=== PATIENT | female | born 1985 | race Caucasian/White ===

== ENCOUNTER → 2023-01-20 | Outpatient (CLI) | payer MEDICAID ==
--- NOTE | 2023-01-20 15:41 | US ---
EXAMINATION TYPE: US OB anatomy transabd DATE OF EXAM: 01/20/2023 COMPARISON: 11/11/2022 CLINICAL INDICATION: Female, 37 years old with history of O36.60X0 MATERNAL CARE FOR EXCESS ; a natomy TECHNIQUE: Transabdominal (TA) EXAM MEASUREMENTS: GESTATIONAL AGE / DATING Physician Established: (19 weeks/0 days) EDC: 06/16/2023 Dates by LMP: (19 weeks/0 days) EDC: 06/16/2023 Dates by First Scan: ( 9 weeks/0 days) EDC: 06/16/2023 Dates by Current Scan for: (19 weeks/5 days) (5 days more growth than expected compared to ) EDC: 06/11/2023 SURVEY IUP: Single PLACENTA: Fundal PREVIA: No previa VENTURA: 11.7 cm Normal CERVICAL LENGTH (transabdominal: norm > 3.0cm): 3.8 cm Fibroid visualized measuring 6.6 x 4.7 x 7.3 cm BIOMETRY PRESENTATION: Vertex LIE: Longitudinal BPD: 4.3 cm 19 weeks / 1 days HC: 16.9 cm 19 weeks / 4 days AC: 13.7 cm 19 weeks / 1 days FL: 3.4 cm 20 weeks / 5 days ESTIMATED WEIGHT IN GRAMS: 314 grams ESTIMATED WEIGHT IN LBS/OZ: 0 lbs. 11 oz. WEIGHT PERCENTAGE BASED ON ESTABLISHED DATE: 88 % HC/AC: 1.23 Normal FL/AC: 25 % HEART RATE: 156 bpm RHYTHM: Normal ANATOMY SEEN (within normal limits): * Lateral Vent (< 1 cm) .6 cm * Cisterna Magna (< 1.1 cm) .3 cm * Nuchal Fold (< 0.6 cm) .4 cm * Cerebellum (varies with age) 1.7 cm Choroid Plexus (bilateral) Midline Falx Cavus Septi Pellucidi Four Chamber Heart Stomach Diaphragm Kidneys (bilateral) Bladder Cord Insert Three Vessel Cord Longitudinal Spine Transverse Spine Arm 1 Legs (bilateral) ANATOMY NOT SEEN/SUBOPTIMAL (DUE TO POSITION): Outflow tracts: LVOT /RVOT Nose and Lips. Situs Arm 2 (radius and ulna are not well delineated) IMPRESSION: 1. Single intrauterine with estimated gestational age of 19 weeks 0 days by LMP. Current ul trasound biometry is concordant at 19 weeks 5 days (88th percentile for weight) with 5 days more grow th than expected compared to 11/11/2022. Follow-up as clinically indicated. 2. A few structures on the survey cannot be clearly visualized (outflow tracts, nose and lips, situs, and Arm2). The patient can be sent for a rescan in one to 2 weeks if desired. The remaining st ructures appear normal.
== END | disposition home or self-care (01) ==
LOC: RADUSWWP 09:35
PROVIDERS: ATTEND Obstetrics & Gynecology
DX: O36.62X0 Maternal care for excessive fetal growth, second trimester, not applicable or unspecified (principal); Z3A.19 19 weeks gestation of pregnancy
CPT/HCPCS: 76811

== ENCOUNTER → 2023-01-29 | Outpatient (CLI) | payer MEDICAID ==
--- NOTE | 2023-01-30 07:57 | US ---
EXAMINATION TYPE: US OB Call Back DATE OF EXAM: 01/29/2023 COMPARISON: Prior ultrasound January 20, 2023 CLINICAL INDICATION: Female, 37 years old with history of US OB CALLBACK NO CHARGE; GESTATIONAL AGE / DATING Dates by Initial Survey Scan: (21 weeks/0 days) EDC: 06/11/2023 HEART RATE: 160 bpm RHYTHM: Normal ANATOMY SEEN (second anatomic survey look): Four Chamber Heart Outflow tracts:? LVOT/RVOT Situs Nose / Lips Arms- Radius Ulnar (bilateral) ANATOMY STILL NOT SEEN (requiring an additional callback appt): NONE Single live intrauterine gestation redemonstrated. Second look anatomical survey shows no suspicious abnormality. IMPRESSION: As above.
== END | disposition home or self-care (01) ==
LOC: RADUSWWP 15:57
PROVIDERS: ATTEND Obstetrics & Gynecology
DX: Z53.9 Procedure and treatment not carried out, unspecified reason (principal)

== ENCOUNTER → 2023-03-09 | Outpatient (CLI) | payer MEDICAID ==
[2023-03-09 16:46] LABS: HCT 33.7 % (37.2-46.3); HGB 10.9 d/dL (12.0-15.0); MCH 31.6 pg (27.0-32.0); MCHC 32.3 d/dL (32.0-37.0); MCV 97.7 FL (80.0-97.0); Mean Platelet Volume 10.4 FL (9.5-12.2); NRBC Per 100 WBC 0 X 10*3/uL (0.00-0.01); Platelet Count 306 X 10*3/uL (140-440); RBC 3.45 X 10*6/uL (4.10-5.20); RDW 12.8 % (11.5-14.5); WBC 9.84 X 10*3/uL (4.50-10.00)
== END | disposition home or self-care (01) ==
LOC: LABWHC1 09:33
PROVIDERS: ATTEND Obstetrics & Gynecology
DX: Z34.82 Encounter for supervision of other normal pregnancy, second trimester (principal); Z3A.00 Weeks of gestation of pregnancy not specified
CPT/HCPCS: 36415; 82950; 85027; 86850

== ENCOUNTER → 2023-03-25 | Outpatient (CLI) | payer MEDICAID ==
[2023-03-25 13:48] LABS: Glucose 3 Hour, Gest 104 mg/dL
== END | disposition home or self-care (01) ==
LOC: LABWHC1 09:13
PROVIDERS: ATTEND Obstetrics & Gynecology
DX: O99.810 Abnormal glucose complicating pregnancy (principal); Z3A.00 Weeks of gestation of pregnancy not specified
CPT/HCPCS: 36415; 82951; 82952

== ENCOUNTER → 2023-03-30 | Outpatient (CLI) | payer MEDICAID ==
--- NOTE | 2023-03-31 10:12 | US ---
EXAMINATION TYPE: US OB >= 14 wk fetus DATE OF EXAM: 03/30/2023 COMPARISON: Multiple US, last scan on 01/29/23 CLINICAL INDICATION: Female, 37 years old with history of O09.529 SUPERVISION OF ELDERLY MULTIGRAVIDA ; Advanced maternal age. . TECHNIQUE: Transabdominal (TA) GESTATIONAL AGE / DATING Physician Established: (28 weeks/6 days) EDC: 06/16/2023 Dates by LMP: (28 weeks/6 days) EDC: 06/16/2023 Dates by First Scan: (28 weeks/6 days) EDC: 06/16/2023 Dates by Current Scan: (30 weeks/0 days) (3 days more growth than expected compared to 01/20/2023) EDC: 06/08/2023 Anatomy ultrasound dates on 01/20/2023 fetus measuring at 29w 4d, with EDC of 06/11/2023. SURVEY IUP: Single PLACENTA: Fundal-Posterior PREVIA: No Previa VENTURA: 15.6 cm Normal CERVICAL LENGTH (transabdominal: norm > 3.0cm): 3.8 cm BIOMETRY PRESENTATION: Vertex BPD: 7.2 cm 29 weeks / 0 days HC: 27.2 cm 29 weeks / 5 days AC: 26.5 cm 30 weeks / 5 days FL: 5.8 cm 30 weeks / 3 days ESTIMATED WEIGHT IN GRAMS: 1547 grams ESTIMATED WEIGHT IN LBS/OZ: 3 lbs. 7 oz. WEIGHT PERCENTAGE BASED ON ESTABLISHED DATES: 87% (versus 88 percentile on 01/20/2023) HC/AC: 1.03 Abnormal (normal range 1.05-1.22) FL/AC: 22% Normal HEART RATE: 146 bpm RHYTHM: Normal IMPRESSION: 1. Single live intrauterine with estimated gestational age of 28 weeks 6 days by LMP. Ultra sound biometry is slightly larger and with 3 days more growth than expected compared to 01/20/2023 (30 weeks 0 days) placing the child at the 87th percentile for weight. 2. HC/AC is just below the normal range. Short interval follow-up can be performed to exclude small h ead size.
== END | disposition home or self-care (01) ==
LOC: RADUSWWP 16:20
PROVIDERS: ATTEND Obstetrics & Gynecology
DX: O09.523 Supervision of elderly multigravida, third trimester (principal); Z3A.28 28 weeks gestation of pregnancy
CPT/HCPCS: 76805

== ENCOUNTER → 2023-04-21 | Outpatient (CLI) | payer MEDICAID ==
--- NOTE | 2023-04-21 18:00 | US ---
EXAMINATION TYPE: US OB >= 14 wk fetus DATE OF EXAM: 04/21/2023 COMPARISON: US 2022 CLINICAL INDICATION: Female, 37 years old with history of O09.529 SUPERVISION OF ELDERLY MULTIGRAVIDA ; TECHNIQUE: Transabdominal (TA) GESTATIONAL AGE / DATING Physician Established: (32 weeks/0 days) EDC: 06/16/2023 Dates by LMP: (32 weeks/0 days) EDC: 06/16/2023 Dates by First Scan: (32 weeks/0 days) EDC: 06/16/2023 Dates by Current Scan: (31 weeks/4 days) EDC: 06/19/2023 SURVEY IUP: Single PLACENTA: Fundal PREVIA: No Previa VENTURA: 12.0 cm Normal CERVICAL LENGTH (transabdominal: norm > 3.0cm): 3.6cm cm BIOMETRY PRESENTATION: Vertex LIE: Longitudinal BPD: 8.0 cm 32 weeks / 2 days HC: 28.2 cm 30 weeks / 6 days AC: 27.7 cm 31 weeks / 5 days FL: 6.3 cm 32 weeks / 5 days ESTIMATED WEIGHT IN GRAMS: 1883 grams ESTIMATED WEIGHT IN LBS/OZ: 4 lbs. 2 oz. WEIGHT PERCENTAGE BASED ON ESTABLISHED DATES: 39% HC/AC: 1.02 Normal FL/AC: 22.89 Normal HEART RATE: 136 bpm RHYTHM: Normal Uterus: 6.3 x 4.0 x 7.2cm hypoechoic area anterior lower uterine segment, ? fibroid IMPRESSION: 1. Single viable intrauterine . 2. Hypoechoic masslike area anterior uterine segment could reflect leiomyoma.
== END | disposition home or self-care (01) ==
LOC: RADUSWWP 14:56
PROVIDERS: ATTEND Obstetrics & Gynecology
DX: O09.523 Supervision of elderly multigravida, third trimester (principal); Z3A.32 32 weeks gestation of pregnancy
CPT/HCPCS: 76805

== ENCOUNTER → 2023-05-12 | Outpatient (CLI) | payer MEDICAID ==
--- NOTE | 2023-05-12 19:48 | US ---
EXAMINATION TYPE: US OB >= 14 wk fetus DATE OF EXAM: 05/12/2023 COMPARISON: 04/21/2023 CLINICAL INDICATION: Female, 37 years old with history of O09.529 SUPERVISION OF ELDERLY MULTIGRAVIDA ; Size TECHNIQUE: Transabdominal (TA) GESTATIONAL AGE / DATING Physician Established: (35 weeks/0 days) EDC: 06/16/2023 Dates by LMP: (35 weeks/0 days) EDC: 06/16/2023 Dates by First Scan: (35 weeks/0 days) EDC: 06/16/2023 Dates by Current Scan: (35 weeks/5 days) (8 days more than expected compared to 04/21/2023) EDC: 06/11/2023 SURVEY IUP: Single PLACENTA: Fundal PREVIA: No Previa VENTURA: 13.1 cm Normal CERVICAL LENGTH (transabdominal: norm > 3.0cm): 3.3 cm BIOMETRY PRESENTATION: Vertex BPD: 8.7 cm 35 weeks / 2 days HC: 32.5 cm 36 weeks / 5 days AC: 33.1 cm 37 weeks / 0 days FL: 6.9 cm 35 weeks / 3 days ESTIMATED WEIGHT IN GRAMS: 2923 grams ESTIMATED WEIGHT IN LBS/OZ: 6 lbs. 7 oz. WEIGHT PERCENTAGE BASED ON ESTABLISHED DATES: 84% versus 39th percentile previously. HC/AC: 0.98 Normal FL/AC: 21 Normal HEART RATE: 150 bpm RHYTHM: Normal [employer] notes: Single, viable IUP/ Growth in 84th percentile IMPRESSION: 1. Single live intrauterine with estimated gestational age of 35 weeks [address] [facility] 8 days more growth than expected compared to the exam of 04/21/2023, movi ng from the 39th percentile at that time, now to the 84th percentile. 2. Consider ongoing follow-up to exclude early LGA.
== END | disposition home or self-care (01) ==
LOC: RADUSWWP 15:06
PROVIDERS: ATTEND Obstetrics & Gynecology
DX: O09.523 Supervision of elderly multigravida, third trimester (principal); Z3A.35 35 weeks gestation of pregnancy
CPT/HCPCS: 76805

== ENCOUNTER 2023-06-05 06:16 | Inpatient (IN) | payer MEDICAID ==
[2023-06-05] MEDS ORDERED: TERBUTALINE 1 MG/ML VIAL SQ PRN (06:58)
[2023-06-05] MEDS ORDERED: OXYTOCIN 10 UNIT/ML 1 ML VIAL IM PRN (06:58)
[2023-06-05] MEDS ORDERED: TRANEXAMIC 1,000 MG/100ML-NACL 1,000 MG in EMPTY BAG 1 BAG IV PRN (06:58)
[2023-06-05] MEDS ORDERED: miSOPROStoL 200 MCG TAB PO PRN (06:58)
[2023-06-05] MEDS ORDERED: CARBOPROST TROMETHAMINE 250 MCG/ML 1 ML AMP IM PRN (06:58)
[2023-06-05] MEDS ORDERED: LIDOCAINE 0.5% (PF) 5 MG/ML (50 ML SDV) SQ PRN (06:58)
[2023-06-05] MEDS ORDERED: METHYLERGONOVINE 0.2 MG/ML 1 ML AMP IM PRN (06:58)
[2023-06-05] MEDS: LACTATED RINGERS 1,000 ML IV SCH ×3 (06:59→11:55)
[2023-06-05] MEDS ORDERED: OXYTOCIN 30 UNITS/500 ML NS 30 UNIT in SALINE 1 500ML.BAG IV SCH (07:00)
--- NOTE | 2023-06-05 07:08 | P.HPOB ---
History of Present Illness H&P Date: 06/05/23 Chief Complaint: Leaking of fluid. This patient is a pleasant 37-year-old 4 para 2 female estimated date of confinement 06/16/2023 estimated gestational age 38-3/7 weeks who presents to labor and delivery with complaints of gush of fluid at about 4:00 this morning. care is complicated by advanced for maternal age. Patient declined genetic testing and also did not want a referral to maternal- medicine. Patient's been watched with serial growth ultrasounds and also nonstress tests. Patient's is also complicated by a large uterine fibroid. Patient has a 7-1/2 cm fibroid that has not grown since approximately second trimester. 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 She's had no outbreaks. Review of Systems Genitourinary: Reports Menstruation: Reports amenorrhea Past Medical History Additional Past Medical History / Comment(s): Large uterine fibroid History of Any Multi-Drug Resistant Organisms: None Reported Past Surgical History: No Surgical Hx Reported Past Anesthesia/Blood Transfusion Reactions: No Reported Reaction Past Psychological History: No Psychological Hx Reported Smoking Status: Never smoker Past Alcohol Use History: None Reported Past Drug Use History: None Reported Medications and Allergies Home Medications Medication Instructions Recorded Confirmed Type Vit No.179/Iron/Folic 1 each PO DAILY 06/05/23 06/05/23 History [ Tablet] RX: Acyclovir 200 mg PO TID 06/05/23 06/05/23 History Allergies Allergy/AdvReac Type Severity Reaction Status Date / Time No Known Allergies Allergy Verified 06/05/23 06:24 Exam Vital Signs Temp Pulse Resp BP 06/05/23 06:23 98.1 F 90 16 137/81 Intake and Output 06/04/23 06/05/23 06/05/23 22:59 06:59 14:59 Other: Weight 112.491 kg - OBG Physical Exam Abdomen: bowel sounds normal, no diffuse tenderness, no bruit present, no guarding noted, no hepatomegaly, no splenomegaly, no mass Vulva: both: normal Vagina: normal moisture, no discharge Cervix: Cervix is 2-3 cm dilated approximately 50% effaced with gross rupture membranes Uterus: enlarged Results labs show she is A negative, rubella immune, RPR nonreactive, hepatitis B and C were negative, HIV is nonreactive, Glucola was 138 with a normal three- hour gtt., most recent growth ultrasound showed baby 6 lbs. 7 oz., group B strep was negative, patient received RhoGAM on March 18. Assessment and Plan Assessment: This is a pleasant 37-year-old avid 4 para 2 female 38-3/7 weeks gestation with spontaneous rupture membranes. Patient is advanced for maternal age and also has a large uterine fibroid. Patient is not having regular contractions therefore will augment labor with Pitocin and anticipate vaginal delivery. (1) 38 weeks gestation of Current Visit: Yes Status: Acute Code(s): Z3A.38 - 38 WEEKS GESTATION OF SNOMED Code(s): 87445266 (2) Spontaneous rupture of amniotic membranes Current Visit: Yes Status: Acute Code(s): BNW9752 - SNOMED Code(s): 987796358 (3) Elderly multigravida Current Visit: Yes Status: Acute Code(s): O09.529 - SUPERVISION OF ELDERLY MULTIGRAVIDA, UNSPECIFIED TRIMESTER SNOMED Code(s): 508803892 (4) Uterine fibroid Current Visit: Yes Status: Acute Code(s): D25.9 - LEIOMYOMA OF UTERUS, UNSPECIFIED SNOMED Code(s): 31729348 (5) Rh negative state in antepartum period Current Visit: Yes Status: Acute Code(s): O26.899 - OTH RELATED CONDITIONS, UNSPECIFIED TRIMESTER; Z67.91 - UNSPECIFIED BLOOD TYPE, RH NEGATIVE SNOMED Code(s): 853904418
--- NOTE | 2023-06-05 07:09 | P.MSEPDOC ---
Presenting Problems - Arrival Data Date of Arrival on Unit: 06/05/23 Time of Arrival on Unit: 06:16 Mode of Transport: Ambulatory - Complaint OB-Reason for Admission/Chief Complaint: Rule Out SROM Medical History - Information : 3 Para: 2 Term: 2 : 0 Abortions: Spontaneous or Elective: 0 Number of Living Children: 2 - Gestational Age Gestational Age by MOOK (wks/days): 38 Weeks and 3 Days Review of Systems - Review of Systems Constitutional: No problems Breast: No problems ENT: No problems Cardiovascular: No problems Respiratory: No problems Gastrointestinal: No problems Genitourinary: No problems Musculoskeletal: No problems Neurological: No problems Skin: No problems Vital Signs - Temperature Temperature: 98.1 F Temperature Source: Oral - Pulse Pulse Oximetery Pulse Rate: 90 Pulse Assessment Method: Pulse Oximetry - Respirations Respiratory Rate: 16 Oxygen Delivery Method: Room Air - Blood Pressure Right Arm Sitting Blood Pressure: 137/81 Blood Pressure Mean: 99 Blood Pressure Source: Automatic Cuff Medical Screen Scoring - Cervical Exam Dilation (cm): 3 Effacement (%): 50 Station: -2 Membranes: Ruptured - Assessment - Baby A Baseline FHR: 150 Heart Rate - NICHD Category: Category I (Normal) NST: Reactive Physician Notification - Physician Notified Physician Notified Date: 06/05/23 Physician Notified Time: 06:30 Physician: Dr Vogel New Order Received: Yes (Admit patient for labor) Maternal Triage Index - Maternal Triage Index Presenting for scheduled procedure w/no complaint: No - Stat/Priority 1 Stat Priority 1: No - Urgent/Priority 2 Urgent Priority 2: No - Prompt/Priority 3 Prompt Priority 3: No - Non-Urgent/Priority 4 Non-Urgent Priority 4: Yes Criteria Met for Priority 4: Patient of Dr Vogel presents to L&D with c/o SROM at 0400. Disposition - Disposition OB Disposition: Admit I agree with the RN Medical Screening Exam: Yes Case reviewed; plan agreed upon as documented in EMR&OBIX.: Yes Diagnosis: ENCOUNTER FOR FULL-TERM UNCOMPLICATED DELIVERY
[2023-06-05 08:23] LABS: Basophils % (A) 0 %; Eosinophils # (A) 0.1 k/uL (0-0.7); Eosinophils % (A) 1 %; HGB 11.9 gm/dL (11.4-16.0); Lymphocytes # (A) 2.5 k/uL (1.0-4.8); Lymphocytes % (A) 24 %; MCH 30.6 pg (25.0-35.0); MCHC 33.1 g/dL (31.0-37.0); MCV 92.5 fL (80.0-100.0); Mean Platelet Volume 8.5; Monocytes # (A) 0.6 k/uL (0-1.0); Monocytes % (A) 5 %; Neutrophils # (A) 7.1 k/uL (1.3-7.7); Neutrophils % (A) 68 %; Platelet Count 274 k/uL (150-450); RBC 3.89 m/uL (3.80-5.40); RDW 14.4 % (11.5-15.5); WBC 10.5 k/uL (3.8-10.6)
[2023-06-05] MEDS ORDERED: SODIUM CHLORIDE 0.9% 250 ML BAG ONE (10:56)
[2023-06-05] MEDS ORDERED: fentaNYL (PF) 50 MCG/ML 5 ML AMP ONE (10:56)
[2023-06-05] MEDS ORDERED: ROPIVACAINE 5 MG/ML 30 ML VIAL ONE (10:56)
[2023-06-05] MEDS ORDERED: ROPIVACAINE 225 MG, fentaNYL (PF). 450 MCG in SODIUM CHLORIDE 0.9% 171 ML EPIDURAL ONE (13:06)
--- NOTE | 2023-06-05 13:21 | P.PROBDLV ---
Vaginal Delivery Note - . Vaginal Delivery Note: Normal spontaneous vaginal delivery viable female infant Apgars 9 and 9 delivery time is 1304 hrs. Please see dictated H&P for intimate details of this patient's admission. Brief summary this pleasant 37-year-old 4 para 2 female 38-3/7 weeks gestation admitted this morning with spontaneous rupture membranes. Patient had Pitocin augmentation of labor and progresses. At approximate for 4 cm dilated she gets an epidural for good pain relief. Patient's labor progresses quickly thereafter and she gets to complete. She pushes the head to the perineum the posterior perineum was supported. We have controlled delivery of the infant's head over the intact perineum. Mouth and nares are bulb suctioned. 's head is straight occiput anterior presentation. There is a nuchal cord 1 which is easily reduced. With gentle downward traction we then have deliver the anterior posterior shoulder and rest this infant's body. This is a vigorous viable female infant Apgars are 9 and 9 delivery time is 1304 hrs. After delivery of the the umbilical cord is allowed to quit pulsating and then doubly clamped and cut. At this time there is no perineal lacerations. Its apparent that the umbilical cord is barely attached to the placenta and th erefore have the patient push and she delivers the placenta intact. Indeed there is a marginal cord insertion almost velamentous. Uterus firms up well. I did give her prophylactically one dose of Methergine due to a large uterine fibroid and multi parity. All counts are correct 3. There are no complications. and mother are stable in delivery room.
[2023-06-05] MEDS ORDERED: diphenhydrAMINE 50 MG/ML 1 ML VIAL IVP PRN (13:25)
[2023-06-05] MEDS ORDERED: LANOLIN CREAM 5 GM TUBE TOPICAL PRN (13:25)
[2023-06-05] MEDS ORDERED: diphenhydrAMINE 25 MG CAP PO PRN (13:25)
[2023-06-05] MEDS ORDERED: SIMETHICONE 80 MG CHEWABLE PO PRN (13:25)
[2023-06-05] MEDS ORDERED: bisacodyL 10 MG SUPP RECTAL PRN (13:25)
[2023-06-05] MEDS ORDERED: ACETAMINOPHEN TAB 325 MG TAB PO PRN (13:25)
[2023-06-05] MEDS ORDERED: HYDROCORTISONE 2.5% RECTAL CREAM 30 GM TUBE RECTAL PRN (13:25)
[2023-06-05] MEDS ORDERED: ZOLPIDEM 5 MG TAB PO PRN (13:25)
[2023-06-05] MEDS ORDERED: BENZOCAINE/MENTHOL SPRAY 1 GM/SPRAY AEROSOL TOPICAL PRN (13:25)
[2023-06-05] MEDS: SENNOSIDES-DOCUSATE SODIUM 1 EACH TAB PO SCH ×2 (14:07→19:28)
[2023-06-05] MEDS: IBUPROFEN 600 MG TAB PO PRN ×2 (16:56→23:25)
[2023-06-05 23:29] VITALS: BP 131/81
[2023-06-06 07:04] LABS: Basophils % (A) 0 %; Eosinophils # (A) 0.1 k/uL (0-0.7); Eosinophils % (A) 1 %; HCT 34.5 % (34.0-46.0); HGB 11.1 gm/dL (11.4-16.0); Lymphocytes # (A) 2.3 k/uL (1.0-4.8); Lymphocytes % (A) 24 %; MCH 30.1 pg (25.0-35.0); MCHC 32.3 g/dL (31.0-37.0); MCV 93.4 fL (80.0-100.0); Mean Platelet Volume 8.4; Monocytes # (A) 0.5 k/uL (0-1.0); Monocytes % (A) 5 %; Neutrophils # (A) 6.7 k/uL (1.3-7.7); Neutrophils % (A) 69 %; Platelet Count 252 k/uL (150-450); RBC 3.69 m/uL (3.80-5.40); RDW 14.5 % (11.5-15.5); WBC 9.8 k/uL (3.8-10.6)
[2023-06-06] MEDS: IBUPROFEN 600 MG TAB PO PRN (09:06)
[2023-06-06] MEDS: SENNOSIDES-DOCUSATE SODIUM 1 EACH TAB PO SCH (09:07)
--- NOTE | 2023-06-06 09:59 | P.DS ---
Providers Date of admission: 06/05/23 06:38 Expected date of discharge: 06/06/23 Attending physician: Rory Vogel Primary care physician: Stated None - Discharge Diagnosis(es) (1) Normal vagina Current Visit: Yes Status: Acute Hospital Course: Patient presented in active labor. She underwent a normal vaginal delivery. course has been uneventful. She denies nausea, vomiting, chest pain, shortness of breath or calf pain. She will be discharged home day #1 in stable condition to follow-up with Dr. Vogel in 6 weeks. Plan - Discharge Summary New Discharge Prescriptions: New Ibuprofen [Motrin] 600 mg PO Q6HR PRN #30 tab PRN Reason: Mild Pain (Scale 1 To 3) No Action Acyclovir 200 mg PO TID Vit No.179/Iron/Folic [ Tablet] 1 each PO DAILY Discharge Medication List Acyclovir 200 mg PO TID 06/05/23 [History] Vit No.179/Iron/Folic [ Tablet] 1 each PO DAILY 06/05/23 [History] Ibuprofen [Motrin] 600 mg PO Q6HR PRN #30 tab 06/06/23 [Rx] Follow up Appointment(s)/Referral(s): Rory Vogel MD [STAFF PHYSICIAN] - 1 Week (PP 07/14/2023 @2:15) Discharge Disposition: HOME SELF-CARE
[2023-06-06 10:50] VITALS: PULSE 97; RESP 18; TEMP 97.4
== END 2023-06-06 13:35 | disposition home or self-care (01) | DRG 807 ==
LOC: FBPOP 06:16 → 4FBP 06:38
PROVIDERS: ADMIT Obstetrics & Gynecology; ATTEND Obstetrics & Gynecology
PROC: 10E0XZZ Delivery of Products of Conception, External Approach (ICD-10-PCS; principal; 2023-06-06)
DX: O42.92 Full-term premature rupture of membranes, unspecified as to length of time between rupture and onset of labor (principal); Z37.0 Single live birth; O69.81X0 Labor and delivery complicated by cord around neck, without compression, not applicable or unspecified; D25.9 Leiomyoma of uterus, unspecified; O26.893 Other specified pregnancy related conditions, third trimester; O34.13 Maternal care for benign tumor of corpus uteri, third trimester; O43.193 Other malformation of placenta, third trimester; Z3A.38 38 weeks gestation of pregnancy; Z67.91 Unspecified blood type, Rh negative
CPT/HCPCS: 59025; 85025; 86850; 86900; 86901; 99213